=== PATIENT | male | born 1975 | race Caucasian/White ===

== ENCOUNTER 2016-10-15 14:02 | Emergency (ER) | payer OTHER ==
[2016-10-15 14:18] VITALS: BP 107/67
[2016-10-15] MEDS ORDERED: Rabies Vaccine, PCEC INJ* 1 ml IM ONE (14:28)
[2016-10-15] MEDS ORDERED: Rabies Immune Globulin 10 ML* 150 UNIT/ML VIAL IM ONE ×2 (14:32→14:41)
--- NOTE | 2016-10-15 15:03 | UC ---
Bite Injury/Animal HPI - HPI Summary HPI Summary: Woke with bat in bedroom today. Here per [facility] for rabies prophylaxis. No known injury or bite wound. - History of Current Complaint Chief Complaint: UCGeneralIllness Stated Complaint: RABIES EXPOSURE Time Seen by Provider: 10/15/16 14:20 Hx Obtained From: Patient Severity Currently: None Onset/Duration: Sudden Onset Type of Bite: Wild Animal Has Animal Been Immunized?: N/A Aggravating Factor(s): Nothing Alleviating Factor(s): Nothing Associated Signs And Symptoms: Positive: Negative Animal Available for Observation: No Animal Control Notified: Yes - Allergies/Home Medications Allergies/Adverse Reactions: Allergies Allergy/AdvReac Type Severity Reaction Status Date / Time No Known Allergies Allergy Verified 10/15/16 14:18 Home Medications: Home Medications NK [No Home Medications Reported] 10/15/16 [History Confirmed 10/15/16] PMH/Surg Hx/FS Hx/Imm Hx Previously Healthy: Yes - Surgical History Surgical History: None - Family History Known Family History: Negative: Blood Disorder - Social History Occupation: Employed Full-time Lives: With Family Alcohol Use: Weekly Substance Use Type: None Smoking Status (MU): Never Smoked Tobacco - Immunization History Most Recent Influenza Vaccination: 2017 Review of Systems Constitutional: Negative Skin: Negative Eyes: Negative ENT: Negative Respiratory: Negative Cardiovascular: Negative Gastrointestinal: Negative Genitourinary: Negative Motor: Negative Neurovascular: Negative Musculoskeletal: Negative Neurological: Negative Psychological: Negative All Other Systems Reviewed And Are Negative: Yes Physical Exam Triage Information Reviewed: Yes Appearance: Well-Appearing, No Pain Distress, Well-Nourished Vital Signs: Initial Vital Signs Temp 98.7 F 10/15/16 14:16 Pulse 56 10/15/16 14:16 Resp 16 10/15/16 14:16 BP 107/67 10/15/16 14:16 Pulse Ox 98 10/15/16 14:16 Vital Signs Reviewed: Yes Eye Exam: Normal, Other - PERRL Eyes: Positive: Conjunctiva Clear ENT Exam: Normal ENT: Positive: Normal ENT inspection, Hearing grossly normal, Pharynx normal, TMs normal Dental Exam: Normal Neck exam: Normal Neck: Positive: Supple, Nontender, No Lymphadenopathy Respiratory Exam: Normal Respiratory: Positive: Chest non-tender, Lungs clear, Normal breath sounds, No respiratory distress, No accessory muscle use Cardiovascular Exam: Normal Cardiovascular: Positive: RRR, No Murmur Musculoskeletal Exam: Normal Neurological Exam: Normal Neurological: Positive: Alert Psychological Exam: Normal Skin Exam: Normal Bite Injury Course/Dx - Differential Dx/Diagnosis Provider Diagnoses: rabies exposure. rabies prophylaxis Discharge - Discharge Plan Condition: Stable Disposition: HOME Patient Education Materials: Rabies (ED), Rabies Vaccine (ED) Referrals: Kosta Miller MD [Primary Care Provider] - Additional Instructions: Follow up with the [facility] for further rabies vaccines.
[2016-10-15] MEDS ORDERED: Rabies Immune Globulin 10 ML* 150 UNIT/ML VIAL ONE (15:41)
== END 2016-10-15 16:05 | disposition home or self-care (01) ==
LOC: UCEAST 14:02
DX: Z20.3 Contact with and (suspected) exposure to rabies (principal); Z29.14 Encounter for prophylactic rabies immune globulin
CPT/HCPCS: 90375; 90471; 90675; 96372; 99211; G0463

== ENCOUNTER 2019-05-29 10:22 | Emergency (ER) | payer OTHER ==
[2019-05-29 11:09] VITALS: BP 107/67
--- NOTE | 2019-05-29 11:15 | UC ---
Eye Complaint HPI - HPI Summary HPI Summary: 44 yo male presents with left eye redness. He tells me that yesterday he noticed some left eye redness and drainage. Today has worsened. He does wear contacts daily (changes them monthly) - has not worn any since yesterday and has taken his glasses. He has a toddler at home who is in daycare and thinks he may have picked it up from her. Denies fever, chills, vision changes, trauma to eye, sinus symptoms, sore throat, cough, rash. - History of Current Complaint Chief Complaint: UCEye Stated Complaint: EYE ISSUE Time Seen by Provider: 05/29/19 11:15 Hx Obtained From: Patient Onset/Duration: Sudden Onset Severity Currently: None Pain Intensity: 0 Pain Scale Used: 0-10 Numeric - Allergies/Home Medications Allergies/Adverse Reactions: Allergies Allergy/AdvReac Type Severity Reaction Status Date / Time No Known Allergies Allergy Verified 05/29/19 11:09 Home Medications: Home Medications Ofloxacin 0.3% (Eye Drop) [Ocuflox OPTH 0.3% (Eye Drop)] 1 - 2 drop LEFT EYE Q4H 7 Days #1 btl 05/29/19 [Rx] PMH/Surg Hx/FS Hx/Imm Hx - Additional Past Medical History Additional PMH: None - Surgical History Surgical History: None - Family History Known Family History: Positive: None Negative: Blood Disorder - Social History Lives: With Family Alcohol Use: Weekly Substance Use Type: None Smoking Status (MU): Never Smoked Tobacco - Immunization History Most Recent Influenza Vaccination: 2017 Review of Systems All Other Systems Reviewed And Are Negative: No Constitutional: Positive: Negative Skin: Positive: Negative Eyes: Positive: Drainage, Eye Redness ENT: Positive: Negative Respiratory: Positive: Negative Cardiovascular: Positive: Negative Gastrointestinal: Positive: Negative Neurological/Mental Status: Positive: Negative Psychological: Positive: Negative Physical Exam - Summary Physical Exam Summary: GENERAL: WDWN. No pain distress. SKIN: No rashes, sores, lesions, or open wounds. HEENT: Head: AT/NC Eyes: EOM intact. PERRLA. LEFT EYE: Moderate scleral injection. Conjunctiva with mild erythema and inflammation. Mild clear/yellow discharge. RIGHT EYE: Conjunctiva clear without inflammation or discharge. No FBs appreciated Nose: NTTP maxillary and frontal sinus. NECK: Supple. Nontender. No lymphadenopathy. CHEST: No accessory muscle use. Breathing comfortably and in no distress. CV: Pulses intact. Cap refill <2seconds NEURO: Alert. PSYCH: Age appropriate behavior. Triage Information Reviewed: Yes Vital Signs: Initial Vital Signs Temp 97.6 F 05/29/19 11:07 Pulse 54 05/29/19 11:07 Resp 16 05/29/19 11:07 BP 107/67 05/29/19 11:07 Pulse Ox 100 05/29/19 11:07 Vital Signs Reviewed: Yes Eye Complaint Course/Dx - Course Course Of Treatment: Left eye conjunctivitis. Advised not to use contacts until resolved and to use a new pair when cleared. - Differential Dx/Diagnosis Provider Diagnosis: Conjunctivitis Discharge ED - Sign-Out/Discharge Documenting (check all that apply): Patient Departure All imaging exams completed and their final reports reviewed: No Studies - Discharge Plan Condition: Stable Disposition: HOME Prescriptions: Ofloxacin 0.3% (Eye Drop) [Ocuflox OPTH 0.3% (Eye Drop)] 1 - 2 drop LEFT EYE Q4H 7 Days #1 btl Patient Education Materials: Conjunctivitis (ED) Referrals: Kosta Miller MD [Primary Care Provider] - Additional Instructions: No contacts until resolved. Put in a new pair after pink eye resolved (7 days minimum) - Billing Disposition and Condition Condition: STABLE Disposition: Home
== END 2019-05-29 11:50 | disposition home or self-care (01) ==
LOC: UCEAST 10:22
DX: H10.9 Unspecified conjunctivitis (principal)
CPT/HCPCS: 99212; G0463